=== PATIENT | female | born 1960 | race Caucasian/White ===

== ENCOUNTER 2019-02-14 08:46 | Inpatient (IN) ==
--- NOTE | 2019-01-31 13:44 | PAT Medication Instructions ---
Medication Instructions Date of Service January 31, 2019 Home Medications gabapentin 400 mg PO TID hydromorphone [Dilaudid] 4 mg PO Q4H PRN lisinopril 10 mg PO QAM lorazepam [Ativan] 0.5 mg PO TID PRN magnesium oxide 400 mg PO QAM methylprednisolone [Medrol (Ashutosh)] 4 mg PO UD naloxegol [Movantik] 25 mg PO DAILY PRN polyethylene glycol 3350 [Miralax] 17 g PO DAILY venlafaxine 25 mg PO BID Continue as directed methylprednisolone [Medrol (Ashutosh)] 4 mg PO UD DO NOT take the morning of surgery lisinopril 10 mg PO QAM magnesium oxide 400 mg PO QAM naloxegol [Movantik] 25 mg PO DAILY PRN polyethylene glycol 3350 [Miralax] 17 g PO DAILY Take morning of surgery With a small sip of water, OTHERWISE NOTHING TO EAT OR DRINK AFTER MIDNIGHT: gabapentin 400 mg PO TID hydromorphone [Dilaudid] 4 mg PO Q4H PRN (okay to take up to 4 hours prior to surgery if needed) lorazepam [Ativan] 0.5 mg PO TID PRN (if needed) venlafaxine 25 mg PO BID Take evening before surgery gabapentin 400 mg PO TID hydromorphone [Dilaudid] 4 mg PO Q4H PRN (if needed) lorazepam [Ativan] 0.5 mg PO TID PRN (if needed) naloxegol [Movantik] 25 mg PO DAILY PRN (if needed) venlafaxine 25 mg PO BID Other Notes If you have any questions please call us at [phone] or [phone] or [phone] or [phone]
--- NOTE | 2019-02-01 11:29 | Anesthesiology Consultation ---
Date of Service February 01, 2019 Assessment & Plan (1) Encounter for pre-operative examination: Chart Review Chart Review: Pending: Refer to Additional Notes / Consult section (pending preop testing (labs, EKG, CXR)) and Patient seen in Pre Admission Testing Teaching & Discussion Pre-Anesthesia Teaching/Discussion Notes: Instructed NPO after midnight before surgery,except medications with 15 cc of water. Medication instructions provid ed according to the PAT guidelines. History Surgery Operation Date: 02/14/19 13:05 Proposed Procedures p L4-L5 Decompression and Fusion, Spinal Cord Monitoring - Tristan Ng, Height/Weight Height: 5 ft 7 in Weight: 106.594 kg Allergies Allergy/AdvReac Type Severity Reaction Status Date / Time bupropion [From Wellbutrin] Allergy Mild SERATONIN Verified 01/28/19 09:57 SYNDROME latex Allergy Mild CONTACT Verified 01/28/19 09:57 DERMATITIS Medications Home Medications Medication Instructions Recorded Confirmed Last Taken gabapentin 400 mg PO TID 01/28/19 01/28/19 Unknown hydromorphone [Dilaudid] 4 mg PO Q4H PRN 01/28/19 01/28/19 Unknown lisinopril 10 mg PO QAM 01/28/19 01/28/19 Unknown lorazepam [Ativan] 0.5 mg PO TID PRN 01/28/19 01/28/19 Unknown magnesium oxide 400 mg PO QAM 01/28/19 01/28/19 Unknown naloxegol [Movantik] 25 mg PO DAILY PRN 01/28/19 01/28/19 Unknown polyethylene glycol 3350 [Miralax] 17 g PO DAILY 01/28/19 01/28/19 Unknown venlafaxine 25 mg PO BID 01/28/19 01/28/19 Unknown Past Medical History Medical History Anxiety GERD (gastroesophageal reflux disease) diet controlled Hypertension Migraine Obesity Osteoarthritis Spinal stenosis s/p Medrol dose alonso (completed 01/31/19) Exercise / Class Metabolic Activity III < 4 Walking/Shop/Light housework (walker PRN) Past Surgical History Surgical History Hx of section X1 Hx of cholecystectomy Past Anesthesia History No Hx of Anesthesia Complications and No Family Hx of Anesthesia Complications History of PONV No Hx of PONV and Hx of Motion Sickness Social History Smoking Status: Never smoker Do You Dip or Chew Tobacco: No Hx Alcohol Use: No Hx Substance Use: No substance use type: does not use Review of Systems Diet controlled reflux. Patient denies chest pain, shortness of breath, cough, wheezing, palpitations. Physical Exam Vital Signs VITALS BP 123/78 P 88 TEMP 98.0 SP02 96%RA RESP 18 PHYSICAL Full neck and c-spine range of motion. Full TMJ range of motion. TMD 3.5 finger breaths Mallampati Score 2 Dentition: upper left side chipped tooth, missing molar Lungs: clear throughout to auscultation Cardiac: regular rate and rhythm, I/ systolic murmur Spine: normal Carotid arteries: negative bruit Extremities: no edema Testing Laboratory Results 01/16/19 SODIUM 140 POTASSIUM 3.7 CHLORIDE 104 CO2 23 BUN 13 CREATININE 0.7 GLUCOSE 103
--- NOTE | 2019-02-01 12:10 | XRay Report ---
XR chest Pre-admission PA/Lat CLINICAL HISTORY: 58 years-old Female presenting with preoperative assessment. TECHNIQUE: PA and lateral views of the chest were obtained. COMPARISON: None. FINDINGS: Cardiomediastinal silhouette normal. Lungs and pleural spaces clear. Osseous structures normal. Joaquina cystectomy clips noted. IMPRESSION: 1. No acute cardiopulmonary disease. Electronically signed by: Julián Gasca M.D. 02/01/2019 12:09 PM
[2019-02-01 13:25] LABS: Basophils # (auto) 0.03 K/uL (0-0.2); Basophils % (auto) 0.3 %; Eosinophils # (auto) 0.16 K/uL (0-0.5); Eosinophils % (auto) 1.7 %; Hematocrit (blood only) 40.7 % (37-47); Hemoglobin 13.6 g/dL (12.0-16.0); Immature Granulocytes # (auto) 0.02 K/uL (0.00-0.02); Immature Granulocytes % (auto) 0.2 %; Lymphocytes # (auto) 3.43 K/uL (1.2-3.4); Lymphocytes % (auto) 36.5 %; Mean Corpuscular Hemoglobin 27.8 pg (25-34); Mean Corpuscular Hgb Conc 33.4 g/dL (32-36); Mean Corpuscular Volume 83.1 fL (80-100); Mean Platelet Volume 9.2 fL (7.4-10.4); Monocytes # (auto) 0.54 K/uL (0.11-0.59); Monocytes % (auto) 5.8 %; Neutrophils # (auto) 5.21 K/uL (1.4-6.5); Neutrophils % (auto) 55.5 %; Platelet Count 334 K/uL (130-400); RDW Coefficient of Variation 13.8 % (11.5-14.5); RDW Standard Deviation 41.8 fL (36.4-46.3); White Blood Count 9.39 K/uL (4.8-10.8)
[2019-02-01 13:32] LABS: Appearance Urine Clear (Clear); Bacteria Urine Automated Negative (Negative); Bilirubin Urine Negative (Negative); Blood Urine Negative (Negative); Color Urine Yellow; Epithelial Cell Urine Auto >30 /lpf (0-5); Glucose Urine UA Negative (Negative); Ketones Urine Negative (Negative); Leukocyte Esterase Urine 1+ (Negative); Nitrite Urine Negative (Negative); Protein Urine Negative (Negative); Specific Gravity Urine 1.023 (1.000-1.030); Urobilinogen Urine Negative (Negative)
[2019-02-01 13:47] LABS: INR 0.9 (0.9-1.1); Partial Thromboplastin Ratio 0.9; Partial Thromboplastin Time 24.2 Seconds (21.0-31.0); Prothrombin Time 9.4 Seconds (9.0-12.0)
[~2019-02-14 08:46] MED LIST: ACETAMINOPHEN 500 MG TAB PO SCH; CEFAZOLIN 2000MG 2,000 MG/15 ML SYR IV SCH; CeleBREX 200 MG CAP PO SCH; DEXAMETHASONE SOD INJ 4 MG/ML VIAL ONE; GABAPENTIN 600 MG DOSE PO SCH; GLYCOPYRROLATE 0.2 MG/ML VIAL ONE; HYDROmorphone INJ 2 MG/ML SYR/VIAL ONE; KETAMINE HCL INJ 50 MG/ML 10 ML VIAL ONE; LIDOCAINE HCL 2% 2 ML VIAL/AMP(20MG/ML) INFIL ONE; LR 15ML/HR IV SCH; MIDAZOLAM HCL 1 MG/ML 2ML VIAL ONE; NEOSTIGMINE METHYLSULFATE 1 MG/ML 10ML VIAL ONE; ONDANSETRON INJ 2 MG/ML 2 ML VIAL ONE; PROPOFOL IV EMULSION 10 MG/ML 20 ML VIAL IV ONE; ROCURONIUM BROMIDE 10 MG/ML 5 ML VIAL ONE; fentaNYL citrate 100 MCG/2 ML VIAL ONE
[2019-02-14] MEDS ORDERED: PHENYLEPHRINE 100MCG/ML 5ML SYR ONE (08:51)
--- NOTE | 2019-02-14 09:52 | History & Physical Bridge Note ---
Date of Service February 14, 2019 History & Physical Bridge Note I have examined the patient, reviewed the History & Physical and in the interval since the performance of the History & Physical I have noted the following changes of clinical significance: no changes noted
[2019-02-14] MEDS ORDERED: ATROPINE SULFATE 0.1 MG/ML 10ML SYR IV PRN (10:00)
[2019-02-14] MEDS ORDERED: PROMETHAZINE HCL 12.5 MG in SODIUM CHLORIDE 0.9% 50 ML IV PRN ×2 (10:00→14:24)
[2019-02-14] MEDS ORDERED: LABETALOL HCL IV 5 MG/ML 20ML IV PRN (10:00)
[2019-02-14] MEDS ORDERED: ONDANSETRON INJ 2 MG/ML 2 ML VIAL IV PRN ×2 (10:00→14:24)
--- NOTE | 2019-02-14 10:00 | History & Physical Report ---
Date of Service February 14, 2019 Assessment & Plan (1) Spinal stenosis, lumbar region with neurogenic claudication: Decompression fusion L4-5 Present on Admission?: Yes History of Present Illness Chief Complaint: Back and leg pain Primary Care Provider: Marlin Schreiber This is a 58-year-old female who presents with chronic persistent back and leg pain. After failing extensive course of nonoperative care is here for surgical intervention. Allergies Allergy/AdvReac Type Severity Reaction Status Date / Time bupropion [From Wellbutrin] Allergy Mild SERATONIN Verified 02/14/19 09:20 SYNDROME latex Allergy Mild CONTACT Verified 02/14/19 09:20 DERMATITIS Home Medications Home Medications Medication Instructions Recorded Confirmed Type gabapentin 400 mg PO TID 01/28/19 02/14/19 History hydromorphone [Dilaudid] 4 mg PO Q4H PRN 01/28/19 02/14/19 History lisinopril 10 mg PO QAM 01/28/19 02/14/19 History lorazepam [Ativan] 0.5 mg PO TID PRN 01/28/19 02/14/19 History magnesium oxide 400 mg PO QAM 01/28/19 02/14/19 History naloxegol [Movantik] 25 mg PO DAILY PRN 01/28/19 02/14/19 History polyethylene glycol 3350 [Miralax] 17 g PO DAILY 01/28/19 02/14/19 History venlafaxine 25 mg PO BID 01/28/19 02/14/19 History Past Med/Surg History Medical History Anxiety GERD (gastroesophageal reflux disease) diet controlled Hypertension Migraine Obesity Osteoarthritis Spinal stenosis s/p Medrol dose alonso (completed 01/31/19) Surgical History Hx of section X1 Hx of cholecystectomy Social History Preferred Language: Swedish Communication Ability: Effective Chief Design Branch Required: No Beliefs That Will Affect Care: None Current Living Situation: Spouse Other Information That Helps Us Care for You: No Feels Safe at Home: Yes Safety Concerns: Feels Safe At This Time Smoking Status: Never smoker Do You Dip or Chew Tobacco: No ; Second Hand Exposure: No ; Tobacco Cessation Education Requested by Patient: No Hx Alcohol Use: No Hx Substance Use: No Physical Exam Physical Exam: Patient is alert and oriented neurologically intact. Results & Data Vital Signs (Past 12 Hours) Vital Signs Temp Pulse Resp BP Pulse Ox 02/14/19 09:10 36.8 C 98 H 20 172/95 H 98
[2019-02-14] MEDS ORDERED: BACITRACIN INJ 50,000 UNIT VIAL ONE (10:04)
[2019-02-14] MEDS ORDERED: BUPIVACAINE/EPINEPHRINE 0.5% MPF 1:200,000 30 ML VIAL ONE (10:06)
[2019-02-14] MEDS ORDERED: BUPIVACAINE/EPINEPHRINE 0.5% MPF 1:200,000 10 ML VIAL INJ PRN (10:37)
[2019-02-14] MEDS ORDERED: FLOSEAL HEMOSTATIC MATRIX 5ML TOP ONE (10:39)
[2019-02-14] MEDS ORDERED: ePHEDrine sulfate 50 MG/ML SYR ONE (11:19)
--- NOTE | 2019-02-14 12:43 | Operative Report ---
Post Operative Report Pre & Post Diagnosis Operation Date: 02/14/19 10:25 Pre-Op Diagnosis: Lumbar spinal stenosis with neurogenic claudication Far lateral disc herniation L3-4 on the right. Post-Op Diagnosis: Same I identified the patient and participated in the time-out.: Yes Procedure Operation Date: 02/14/19 10:25 Actual Procedures #1 lumbar decompression with bilateral medial facetectomies and foraminotomies L3-4 L4-5. #2 posterior spinal fusion L3-4 L4-5. #3 placement posterior instrumentation L3-4 L4-5. #4 interbody fusion L3-4 L4-5. #5 placed a peek cage 12 x 26 mm at L3-4 and 11 x 26 mm at L4-5. #6 placement of infuse collagen sponge, master graft in the posterior lateral gutters ostial amp and interbody spaces. #7 placement of locally harvested morselized autograft in the posterior lateral gutters. Surgeon Tristan Ng, Staff Electronic Warfare Officer Linnea Guthrie Estimated Blood Loss 200 Findings See Below Patient is 5 foot 7 inches tall weighing over 110 kg with a BMI of 38. The patient's body habitus did add significant technical difficulty throughout the procedure requiring her longer instruments and deeper retractors in order to perform the procedure. This added at least 40% increase in operative time. Specimens None Indications This is a 58-year-old female presents with worsening back and right leg symptoms. She presents with both an L4-5 pattern as well as L3 radiculopathy. Her symptoms have failed to improve subsequently elected to go the above- mentioned procedure. Description of Procedure Patient was met with identified and informed consent obtained. Patient was then taken to the operative suite underwent intubation placed in a prone position the Valeriano table on top of the Juancarlos frame. All bony prominences were well-padded eyes inspected to ensure no external pressure placed upon the peer at this point the lumbar spine was prepped and draped in normal sterile fashion. Sharp dissection with the assistance of Bovie cautery performed down to and exposing the lamina transverse processes of L3-L4-L5 bilaterally. Then performed a complete laminectomy of L4 to proceed with a partial laminectomy L3 exploring the exiting nerve root on the right. Noting marked compression. Then performed a complete laminectomy of L3 and had to perform the entire facetectomy to adequately decompress the exiting L3 nerve root. There was evidence of a massive disc herniation occupying the foramen and far lateral area compressing the roots. I then proceeded to perform bilateral medial extremities foraminotomies addressing severe stenosis at L4-5. Pedicle screws were then placed in L3-L4-L5 bilaterally with assistance of fluoroscopy the purposes breanne placed. By way of a transforaminal approach on the right complete discectomy of L4-5 was performed endplates curetted to subcortical being bone and a 11 x 26 mm peek cage filled with ostium bone graft tapped in position. Then proceeded to L3-[address] of a transforaminal portion right complete discectomy performed endplates curetted to subcortical bleeding bone and a 12 x 26 mm peek cage filled with ostium bone graft tapped in position. The rods were then locked in final position bilaterally. The transverse processes of L3-L4 and L5 bur to subcortical bleeding bone. Infuse collagen sponge bone mass graft locally harvested morselized graft placed in the posterior lateral gutters. 15 round MATTIE drain inserted. She was then awakened taken to PACU in stable condition. Please note Linnea Guthrie present throughout the entire procedure involved patient positioning complex portions of the surgery and final skin closure. Lastly spinal cord monitoring was utilized that the procedure no changes noted. I attest to the content of the Intraoperative Record and any orders documented therein. Any exceptions are noted below.
--- NOTE | 2019-02-14 12:57 | Fluoroscopy Report ---
FL lumbar spine 2-3V CLINICAL HISTORY: L4-L5 DECOMPRESSION AND FUSION COMPARISON STUDY: None FLUOROSCOPY TIME: 22 seconds. NUMBER OF FLUOROSCOPIC IMAGES: 2 FINDINGS: 2 intraoperative fluoroscopic spot images demonstrate postsurgical changes of an L3-4 and L 4-5 discectomy and interbody fusion. There is posterior pedicle screw spinal fusion. IMPRESSION: Postsurgical changes of an L3-L5 spinal decompression and fusion. Electronically signed by: Duke Roman M.D. 02/14/2019 12:56 PM
[2019-02-14] MEDS: HYDROmorphone INJ 1 MG/ML SYRINGE IV PRN ×6 (13:20→13:45)
--- NOTE | 2019-02-14 13:59 | Anesthesiology Progress Note ---
Date of Service February 14, 2019 Anesthesia Post Procedure Vital Signs Vital Signs: Temp Pulse Pulse Resp BP BP Pulse Ox 02/14/19 13:55 36.6 C 96 H 16 121/75 95 02/14/19 13:45 90 16 136/78 95 02/14/19 13:35 116 H 16 153/90 H 95 02/14/19 13:25 121 H 16 156/90 H 95 02/14/19 13:15 120 H 14 153/95 H 94 02/14/19 13:05 102 H 14 164/101 H 93 02/14/19 12:59 37.1 C 97 H 12 183/102 H 94 02/14/19 09:10 36.8 C 98 H 20 172/95 H 98 Pain Intensity Right Thigh: Pain Intensity: 2 Transfer of Care Handoff Completed per policy Notes Mental Status: alert / awake / arousable Patient Amnestic to Procedure: Yes Nausea / Vomiting: adequately controlled Pain: adequately controlled Airway Patency, RR, SpO2: stable & adequate BP & HR: stable & adequate Hydration State: stable & adequate Anesthetic Complications: no major complications apparent
[2019-02-14] MEDS ORDERED: MAGNESIUM HYDROXIDE SUSP 30 ML UDC PO PRN (14:24)
[2019-02-14] MEDS ORDERED: DO NOT ADMINISTER PNEUMOCOCCAL VACCINE PRN (14:24)
[2019-02-14] MEDS ORDERED: NALOXONE HCL 0.4 MG/1 ML VIAL/CARP IV PRN (14:24)
[2019-02-14] MEDS ORDERED: METOCLOPRAMIDE HCL INJ 5 MG/ML 2 ML VIAL IV PRN (14:24)
[2019-02-14] MEDS ORDERED: LORazepam 0.5 MG/1 ML VIAL IV PRN (14:24)
[2019-02-14] MEDS ORDERED: ONDANSETRON 4 MG OD TAB PO PRN (14:24)
[2019-02-14] MEDS ORDERED: HYDROmorphone INJ 1 MG/ML SYRINGE IV PRN (14:24)
[2019-02-14] MEDS ORDERED: FAMOTIDINE 20 MG TAB PO PRN (14:24)
[2019-02-14] MEDS ORDERED: DO NOT ADMINISTER FLU VACCINE PRN (14:24)
[2019-02-14] MEDS ORDERED: ACETAMINOPHEN 1,000 MG/100 ML VIAL IV PRN (14:24)
[2019-02-14] MEDS ORDERED: ALUMINUM/MAGNESIUM SUSP 30 ML UDC PO PRN (14:24)
[2019-02-14] MEDS ORDERED: SOD PHOSPHATE/SOD BIPHOSPHATE ENEMA 132 ML BTL PR PRN (14:24)
[2019-02-14] MEDS ORDERED: LORazepam 0.5 MG TAB PO PRN ×2 (14:24)
[2019-02-14] MEDS ORDERED: HYDROmorphone INJ 0.5 MG/0.5 ML SYR IV PRN (14:24)
[2019-02-14] MEDS ORDERED: bisacodyL 10 MG SUPP PR PRN (14:24)
[2019-02-14] MEDS: LACTATED RINGER'S 1,000 ML IV SCH ×2 (14:32→21:40)
[2019-02-14] MEDS: KETOROLAC 30 MG/ML VIAL IV SCH ×2 (15:39→21:43)
[2019-02-14] MEDS: GABAPENTIN 400 MG CAP PO SCH ×2 (15:40→20:54)
[2019-02-14] MEDS: CEFAZOLIN 2000MG 2,000 MG/15 ML SYR IV SCH (18:31)
[2019-02-14] MEDS: DOCUSATE SODIUM/SENNA 50/8.6MG TAB PO SCH (20:55)
[2019-02-14] MEDS: VENLAFAXINE HCL 50 MG TAB PO SCH (20:55)
[2019-02-14] MEDS: ACETAMINOPHEN 500 MG TAB PO PRN (23:10)
[2019-02-15] MEDS: CEFAZOLIN 2000MG 2,000 MG/15 ML SYR IV SCH (01:58)
[2019-02-15] MEDS: TRAMADOL HCL 50 MG TABLET PO PRN (01:58)
[2019-02-15] MEDS: KETOROLAC 30 MG/ML VIAL IV SCH ×2 (04:17→10:06)
[2019-02-15] MEDS: LACTATED RINGER'S 1,000 ML IV SCH (04:20)
[2019-02-15 05:21] LABS: Basophils # (auto) 0.01 K/uL (0-0.2); Basophils % (auto) 0.1 %; Hematocrit (blood only) 33.6 % (37-47); Hemoglobin 11.1 g/dL (12.0-16.0); Immature Granulocytes # (auto) 0.03 K/uL (0.00-0.02); Immature Granulocytes % (auto) 0.3 %; Lymphocytes # (auto) 1.56 K/uL (1.2-3.4); Lymphocytes % (auto) 16.3 %; Mean Corpuscular Hemoglobin 27.5 pg (25-34); Mean Corpuscular Volume 83.2 fL (80-100); Mean Platelet Volume 9.2 fL (7.4-10.4); Monocytes # (auto) 0.63 K/uL (0.11-0.59); Monocytes % (auto) 6.6 %; Neutrophils # (auto) 7.32 K/uL (1.4-6.5); Neutrophils % (auto) 76.7 %; Platelet Count 219 K/uL (130-400); RDW Coefficient of Variation 13.6 % (11.5-14.5); RDW Standard Deviation 41.2 fL (36.4-46.3); Red Blood Count 4.04 M/uL (4.2-5.4); White Blood Count 9.55 K/uL (4.8-10.8)
[2019-02-15] MEDS: POLYETHYLENE (MIRALAX) 17 GM PACK PO SCH ×3 (05:33→18:04)
[2019-02-15 05:53] LABS: BUN Creatinine Ratio 21.4 (10-20); Calcium 8.6 mg/dl (8.5-10.1); Creatinine Clr Calc Pharmacy 111.8 ml/min; Est GFR (African American) 109.6; Est GFR (Non-African American) 94.6; Potassium 4.1 mmol/L (3.5-5.1)
[2019-02-15] MEDS: ACETAMINOPHEN 500 MG TAB PO PRN (07:37)
--- NOTE | 2019-02-15 07:56 | Anesthesiology Progress Note ---
Date of Service February 15, 2019 Anesthesia Post Procedure Vital Signs Vital Signs: Temp Pulse Pulse Resp BP BP Pulse Ox 02/15/19 07:24 36.7 C 78 16 105/65 99 02/15/19 03:41 36.6 C 84 18 118/70 99 02/14/19 23:35 36.3 C L 74 18 113/72 97 02/14/19 20:44 80 16 127/80 98 02/14/19 17:18 36.4 C L 70 16 114/69 96 02/14/19 16:18 36.4 C L 78 16 113/69 98 02/14/19 15:24 36.7 C 93 H 16 124/74 98 02/14/19 14:25 36.7 C 100 H 17 135/81 98 02/14/19 14:05 36.6 C 91 H 16 131/75 95 02/14/19 13:55 36.6 C 96 H 16 121/75 95 02/14/19 13:45 90 16 136/78 95 02/14/19 13:35 116 H 16 153/90 H 95 02/14/19 13:25 121 H 16 156/90 H 95 02/14/19 13:15 120 H 14 153/95 H 94 02/14/19 13:05 102 H 14 164/101 H 93 02/14/19 12:59 37.1 C 97 H 12 183/102 H 94 02/14/19 09:10 36.8 C 98 H 20 172/95 H 98 Pain Intensity Right Thigh: Pain Intensity: 5 Back: Pain Intensity: 3 Notes Mental Status: alert / awake / arousable and participated in evaluation Patient Amnestic to Procedure: Yes Nausea / Vomiting: adequately controlled Pain: adequately controlled Airway Patency, RR, SpO2: stable & adequate BP & HR: stable & adequate Hydration State: stable & adequate Anesthetic Complications: no major complications apparent and Pt Satisfied with anesthetic care
[2019-02-15] MEDS: OXYCODONE HCL IR 5 MG TAB (IMMEDIATE RELEASE) PO PRN ×3 (08:54→21:56)
[2019-02-15] MEDS: GABAPENTIN 400 MG CAP PO SCH ×3 (08:55→20:45)
[2019-02-15] MEDS: VENLAFAXINE HCL 50 MG TAB PO SCH ×2 (08:55→20:45)
[2019-02-15] MEDS: lisinopriL 10 MG TAB PO SCH (08:56)
[2019-02-15] MEDS: MAGNESIUM OXIDE 400 MG TAB PO SCH (08:56)
--- NOTE | 2019-02-15 10:13 | Orthopedic Progress Note ---
Date of Service February 15, 2019 Assessment & Plan (1) Spinal stenosis, lumbar region with neurogenic claudication: At this time we will continue physical therapy monitor MATTIE output anticipate discharge home the next few days. Present on Admission?: Yes Subjective Back pain controlled leg pain markedly improved. Physical Exam Physical Exam: Patient is ambulating halls with a walker. She is good strength testing appears comfortable. Results & Data Vital Signs (Past 12 Hours) Vital Signs Temp Pulse Resp BP Pulse Ox 02/15/19 07:24 36.7 C 78 16 105/65 99 02/15/19 03:41 36.6 C 84 18 118/70 99 02/14/19 23:35 36.3 C L 74 18 113/72 97
[2019-02-15] MEDS ORDERED: MOVANTIK PO PRN (17:13)
[2019-02-15] MEDS: DOCUSATE SODIUM/SENNA 50/8.6MG TAB PO SCH (20:46)
[2019-02-15] MEDS: MOVANTIK PO PRN (20:47)
[2019-02-16] MEDS: TRAMADOL HCL 50 MG TABLET PO PRN ×2 (00:48→10:32)
[2019-02-16] MEDS: POLYETHYLENE (MIRALAX) 17 GM PACK PO SCH ×5 (00:49→23:27)
[2019-02-16] MEDS: OXYCODONE HCL IR 5 MG TAB (IMMEDIATE RELEASE) PO PRN ×2 (06:02→14:17)
[2019-02-16] MEDS: VENLAFAXINE HCL 50 MG TAB PO SCH ×2 (07:41→20:37)
[2019-02-16] MEDS: MAGNESIUM OXIDE 400 MG TAB PO SCH (07:42)
[2019-02-16] MEDS: GABAPENTIN 400 MG CAP PO SCH ×3 (07:42→20:38)
[2019-02-16] MEDS: lisinopriL 10 MG TAB PO SCH (07:42)
[2019-02-16] MEDS: MOVANTIK PO PRN (07:43)
[2019-02-16] MEDS: ACETAMINOPHEN 500 MG TAB PO PRN ×2 (07:47→16:10)
[2019-02-16] MEDS ORDERED: DEXAMETHASONE SOD PHOSPHATE 10 MG in SYRINGE 0 ML IV STA (09:55)
--- NOTE | 2019-02-16 11:45 | Orthopedic Progress Note ---
Date of Service February 16, 2019 Assessment & Plan (1) Spinal stenosis, lumbar region with neurogenic claudication: This time we will continue physical therapy monitor MATTIE output advance her bowel regiment possible discharge home in the next few days. Present on Admission?: Yes Subjective Patient struggling with back pain the day. But nauseated secondary to pain medication. Is not had a bowel movement as of yet. Physical Exam Physical Exam: Patient is in bed. She has good strength testing. Results & Data Vital Signs (Past 12 Hours) Vital Signs Temp Pulse Resp BP Pulse Ox 02/16/19 06:07 36.9 C 104 H 16 120/79 100
[2019-02-16] MEDS: DOCUSATE SODIUM/SENNA 50/8.6MG TAB PO SCH (20:38)
[2019-02-17] MEDS: ACETAMINOPHEN 500 MG TAB PO PRN ×2 (02:34→10:25)
[2019-02-17] MEDS: POLYETHYLENE (MIRALAX) 17 GM PACK PO SCH ×2 (05:45→12:17)
--- NOTE | 2019-02-17 07:32 | Discharge Summary ---
Date of Service February 17, 2019 Admission HPI Per Admitting Provider This is a 58-year-old female who presents with chronic persistent back and leg pain. After failing extensive course of nonoperative care is here for surgical intervention. Principal Diagnosis Lumbar spinal stenosis with radiculopathy Discharge Data Allergies Allergy/AdvReac Type Severity Reaction Status Date / Time bupropion [From Wellbutrin] Allergy Mild SERATONIN Verified 02/14/19 09:20 SYNDROME latex Allergy Mild CONTACT Verified 02/14/19 09:20 DERMATITIS Consultations 02/14/19 14:24 Consult Case Management - Discharge Planning Routine Procedures Performed Operation Date: 02/14/19 10:25 Actual Procedures p L3-L5 Decompression and Fusion, Interbody Fusion L3-L4,L4-L5, Use of Osteoamp and Infuse, Spinal Cord Monitoring(Not Applicable) - Tristan Ng DO Ordered Studies 02/14/19 [place] fluoroscopy <1hr Routine 02/14/19 10:25 FL lumbar spine 2-3V Routine Hospital Course (1) Spinal stenosis, lumbar region with neurogenic claudication: Patient underwent lumbar decompression fusion tolerated as well as taken to the orthopedic for postoperative. Postop day 1 she was up and ambulating progressed to postop day #2 postop day #3 MATTIE drain decreased appropriately. Bowels working well. Excellent strength testing. Subsequently discharged home. Discharge orders and instructions from the chart for further review. Total Time Total Time Spent Total Time Spent (In Minutes): 20 minutes Discharge Plan Discharge Items Patient Disposition: Home - Self-Care Reason For Visit: LUMBAR SPINAL STENOSIS W/O NEUROGENIC CLAUDICATION Discharge Diagnosis: Lumbar spinal stenosis with neurogenic claudication with far lateral disc herniation L3-4. Activity: As commented below Non-emergency contact: Primary Care Provider Call non-emergency contact if: you have any medication questions Follow-up/Referrals: Marlin Schreiber PA-C [Primary Care Provider] - Diet: Regular Addtl Attending Provider Instructions: ACTIVITY RECOMMENDATIONS: SELF CARE INSTRUCTIONS AFTER THORACIC/LUMBAR FUSIONS 1. You may walk to your tolerance. It is good exercise for your legs and back. Expect some back and intermittent leg aches and pains. 2. You may perform "counter-top" level activities (make a sandwich, jonny with a project, etc.). 3. No bending or lifting of more than 10 pounds or back twisting of any nature (roll like a log when turning in bed). 4. You may ride in a car for 20-30 minutes at a time. No driving until after your first visit with your doctor. 5. Frequent changes of position and restricting sitting to 30 minutes at a time will help limit the amount of back spasms and stiffness you may experience. 6. You may discontinue the use of ambulatory aids (cane, crutches, etc.) once your strength and confidence allow. 7. You may sales promotion coordinator the shower and let water strike your incision when you arrive home at least once daily. Do not take a tub bath, sit in a hot tub or go into a swimming pool until after your first recheck in the office. SPECIAL CARE INSTRUCTIONS: VERY IMPORTANT TO READ AND REVIEW A. Your surgical incision has been closed with a cosmetic suture under the skin that will dissolve in about 6 weeks. In 14 days, you can use a pair of clean scissors and cut the suture that is left outside of the skin at the ends of your incision. 1. The small skin tapes can be removed 7 days after surgery if they have not fallen off by that point. 2. You may keep the wound open to air as much as possible to promote healing after post-op day number 5 unless told otherwise by your doctor. 3. If you think the wound looks like it is becoming infected (redness or worsening drainage) and/or you are experiencing fever, chill or worsening back pain and muscle spasms, contact the office so that we may evaluate you as soon as possible. B. Complications are uncommon, but please contact us if you have any signs or symptoms of: 1. wound infection (fever higher than 102.5 degrees F, redness, separation of wound, drainage, or increasing pain from the incision) 2. blood clots in legs (pain, swelling, redness and warmth in legs) 3. urinary tract infection (fever higher than 102.5 degrees F, burning upon urination or increased frequency of urination) 4. nerve problems (inability to walk on your toes or heels, numbness, loss of bowel or bladder control) 5. any other symptoms that concern you C. Please call the office at if you have any concerns or questions about your operation or recovery. D. No smoking! Smoking drastically decreases the chance of a solid fusion. E. Do not take any anti-inflammatory medications (Indocin, Advil, Motrin, Aspirin, Naprosyn, etc.) as these may inhibit the chance of a solid fusion. Tylenol is okay to take for pain. MANAGING PAIN AFTER SPINAL SURGERY 1. Narcotic medication is intended for short-term use and will be provided for surgical pain. Surgical pain usually lasts for a period of 4-6 weeks. Narcotic medication includes Percocet, Vicodin, Darvocet, Tylenol #3 or Lortab. 2. Longer-term pain is more appropriately treated with non-narcotic medication such as Tylenol ES. 3. Muscle spasm is not appropriately treated with narcotics. Muscle relaxers such as Soma, Flexeril or Skelaxin can be used along with Tylenol ES. 4. Remember that we all live with some "aches and pains". This is not unusual or uncommon after an injury or as we get older. a. Back pain is expected and may include muscle spasms for 4 to 6 weeks after surgery. The pain should gradually improve. If the pain worsens for no apparent reason, please contact the office. b. Intermittent leg pain may also be experienced and should not be concerned about unless it worsens for no apparent reason. If so, please contact the office. 5. We will provide appropriate medication within the normal guidelines of their prescribed use. We will also be very cautious and aware of potential abuse and extended duration of patients' medication needs. a. Pain medications are for your comfort and to assist with sleep and rest so that the tissue can heal. They are not provided in order to return to normal activity and should not be used through the day. To do so or worsening pain at night can result from ongoing tissue damage and de velopment of tolerance to the prescribed medicine. 6. Please allow 2-3 days to process refills. Prescriptions will not be mailed but must be picked up at the office. FOLLOW UP VISIT: Keep your scheduled follow-up appointment. Any questions, please call the office at . Pending Studies at Discharge: No Stand-Alone Forms: [employer], Smoking Cessation Medications and DC Order Prescriptions: New tramadol 50 mg tablet 50 mg PO Q6H PRN (Reason: pain, moderate) Qty: 30 RF: 0 oxycodone 5 mg tablet 5 mg PO Q6H PRN (Reason: pain, severe) Qty: 30 RF: 0 gabapentin 400 mg Capsule 400 mg PO TID Qty: 90 RF: 0 Continued venlafaxine 25 mg Tablet 25 mg PO BID RF: 0 gabapentin 400 mg Capsule 400 mg PO TID RF: 0 lorazepam [Ativan] 0.5 mg Tablet 0.5 mg PO TID PRN (Reason: Anxiety) RF: 0 lisinopril 10 mg Tablet 10 mg PO QAM RF: 0 polyethylene glycol 3350 [Miralax] 17 gram/dose Powder 17 g PO DAILY RF: 0 hydromorphone [Dilaudid] 4 mg Tablet 4 mg PO Q4H PRN (Reason: Pain) RF: 0 magnesium oxide 400 mg magnesium Capsule 400 mg PO QAM RF: 0 Movantik 25 mg Tablet 25 mg PO DAILY PRN (Reason: Constipation) RF: 0 Discharge Orders: Discharge Order (Routine); Ordered 02/17/19 Ordered By: Tristan Ng Admission Data Admit Date/Time: 02/14/19 12:47 Attending Provider: Tristan Ng Admit Provider: Tristan Ng Primary Care Provider: Marlin Schreiber
[2019-02-17] MEDS: MAGNESIUM OXIDE 400 MG TAB PO SCH (08:40)
[2019-02-17] MEDS: lisinopriL 10 MG TAB PO SCH (08:40)
[2019-02-17] MEDS: GABAPENTIN 400 MG CAP PO SCH ×2 (08:41→13:54)
[2019-02-17] MEDS: MOVANTIK PO PRN (08:42)
[2019-02-17] MEDS: VENLAFAXINE HCL 50 MG TAB PO SCH (10:26)
== END 2019-02-17 14:13 | disposition home or self-care (01) | DRG 455 ==
LOC: ASU 08:46 → 3E 12:47